=== PATIENT | male | born 1955 | race African-American/Black ===

== ENCOUNTER 2017-10-13 14:52 | Inpatient (IN) | payer MEDICAID ==
[~2017-10-13] VITALS: Ht 172.7 cm; Wt 59.0 kg
[~2017-10-13 14:52] MED LIST: ADVAIR; ALBUTEROL; ALBUTEROL INHALER INH; AMLO10TA4 PO; FLEXERIL; FLOMAX PO; FLUT1DIS3 IH; GABAPENTIN; GUAI10SY2 PO; HYDROCHLOROTHIAZIDE PO; IBUP-1008 PO; LEVO500T2 PO; P20 PO; PRO-AIR INH; TIOT18CA3
[2017-10-13] MEDS ORDERED: ALBUTEROL (0.083%) 2.5MG/3ML NEB HHN STA (18:59)
[2017-10-13] MEDS ORDERED: IPRATROPIUM BROMIDE (0.02%) 0.5MG/2.5ML NEB HHN STA (18:59)
[2017-10-13] MEDS ORDERED: SODIUM CHLORIDE 0.9% 1,000 ML IV ONE (19:15)
[2017-10-13] MEDS ORDERED: METHYLPREDNISOLONE SOD SUCC 125 MG/2 ML VIAL IV ONE (19:15)
[2017-10-13 19:57] LABS: BASOPHILS % 0.3 % (0.0-2.0); HEMATOCRIT. 40.8 % (42.0-52.0); HEMOGLOBIN. 13.7 g/dL (14.0-18.0); LYMPHOCYTES % 14.9 % (20.0-50.0); MEAN CORPUSCULAR HEMOGLOBIN 30.4 pg (28.0-32.0); MEAN CORPUSCULAR VOLUME 90.3 fL (80.0-94.0); MEAN PLATELET VOLUME 8.2 fl (7.4-10.4); MONOCYTES % 14.7 % (2.0-8.0); NEUTROPHILS % 70.1 % (40.0-76.0); PLATELET 217 x1000/uL (130-400); RED BLOOD CELL COUNT 4.51 mill/uL (4.7-6.1); RED CELL DISTRIBUTION WIDTH 15.2 % (11.6-14.6)
[2017-10-13 20:03] LABS: D-DIMER 2.14 mg/L FEU (<0.50); INR 1.1; PROTHROMBIN TIME 11.7 sec (9.4-11.6)
[2017-10-13 20:11] LABS: CARBON DIOXIDE 30 mEq/L (21-32); CHLORIDE 102 mEq/L (98-107)
[2017-10-13 20:14] LABS: TROPONIN I < 0.02 ng/mL (0.00-0.04)
[2017-10-13] MEDS ORDERED: CEFTRIAXONE 1 G PREMIX 50 ML IV ONE (22:00)
[2017-10-13] MEDS ORDERED: AZITHROMYCIN 500 MG in DEXT 5% WATER 250 ML IV ONE (22:00)
[2017-10-13 22:12] LABS: *AMPHETAMINES SCREEN URINE NEGATIVE (NEGATIVE); *BARBITURATES SCREEN URINE NEGATIVE (NEGATIVE); *BENZODIAZEPINES SCREEN URINE PRESUMTIVE POSITIVE (NEGATIVE); *COCAINE SCREEN URINE NEGATIVE (NEGATIVE); CANNABINOID URINE SCREEN NEGATIVE (NEGATIVE); METHADONE URINE SCREEN NEGATIVE (NEGATIVE); OPIATES URINE SCREEN PRESUMTIVE POSITIVE (NEGATIVE); PHENCYCLIDINE URINE SCREEN NEGATIVE (NEGATIVE)
[2017-10-13] MEDS ORDERED: METHYLPREDNISOLONE SOD SUCC 40 MG/ML VIAL IV SCH (22:30)
[2017-10-13] MEDS: AZITHROMYCIN 500 MG in DEXT 5% WATER 250 ML IV SCH (22:30)
[2017-10-13] MEDS ORDERED: ONDANSETRON HCL 4MG/2ML VIAL IV PRN (22:30)
[2017-10-13] MEDS ORDERED: ACETAMINOPHEN 325MG TABLET PO PRN (22:30)
[2017-10-13] MEDS ORDERED: DOCUSATE SODIUM 100MG CAPSULE PO PRN (22:30)
[2017-10-13] MEDS ORDERED: ENOXAPARIN 40MG/0.4ML SYR SUBCUT SCH (22:30)
[2017-10-13] MEDS ORDERED: CLONIDINE 0.1MG TABLET PO PRN (22:30)
[2017-10-13] MEDS ORDERED: CEFTRIAXONE 1 G PREMIX 50 ML IV SCH (22:30)
[2017-10-13] MEDS ORDERED: MAGNESIUM/ALUMINUM HYDROXIDE/SIMETHICONE 30ML UDC PO PRN (22:30)
[2017-10-13] MEDS ORDERED: BUDESONIDE 0.5MG/2ML NEB HHN SCH (22:30)
[2017-10-13] MEDS ORDERED: IOHEXOL-350 100 ML BOTTLE ONE (22:30)
[2017-10-13 23:43] LABS: CHLORIDE 101 mEq/L (98-107)
[2017-10-13 23:49] LABS: CARBON DIOXIDE 30 mEq/L (21-32)
[2017-10-14 06:49] LABS: BASOPHILS % 0.3 % (0.0-2.0); HEMATOCRIT. 39.6 % (42.0-52.0); LYMPHOCYTES % 12.8 % (20.0-50.0); MEAN CORPUSCULAR HEMOGLOBIN 29.7 pg (28.0-32.0); MEAN PLATELET VOLUME 7.8 fl (7.4-10.4); MONOCYTES % 14.6 % (2.0-8.0); NEUTROPHILS % 72.3 % (40.0-76.0); PLATELET 208 x1000/uL (130-400); RED CELL DISTRIBUTION WIDTH 15.1 % (11.6-14.6)
[2017-10-14 07:08] LABS: CREATINE KINASE 65 IU/L (39-308); HDL CHOLESTEROL 72 mg/dL (40-59); LDL CHOLESTEROL 62 mg/dL (5-100); TROPONIN I < 0.02 ng/mL (0.00-0.04)
[2017-10-14 07:12] LABS: CREATINE KINASE MB FRACTION 2.9 ng/mL (0.5-3.6)
[2017-10-14] MEDS: AZITHROMYCIN 500 MG in DEXT 5% WATER 250 ML IV SCH ×3 (07:23→07:25)
[2017-10-14 08:00] VITALS: BP 136/90
[2017-10-14 12:00] VITALS: BP 144/90
[2017-10-14] MEDS: ENOXAPARIN 40MG/0.4ML SYR SUBCUT SCH (12:43)
[2017-10-14] MEDS: METHYLPREDNISOLONE SOD SUCC 40 MG/ML VIAL IV SCH ×3 (12:43→23:14)
[2017-10-14 13:53] VITALS: BP 144/90
[2017-10-14 16:00] VITALS: BP 146/91
[2017-10-14 16:40] LABS: CREATINE KINASE 56 IU/L (39-308); CREATINE KINASE MB FRACTION 2.5 ng/mL (0.5-3.6); TROPONIN I < 0.02 ng/mL (0.00-0.04)
[2017-10-14] MEDS: IPRATROPIUM/ALBUTEROL 0.5-3(2.5)MG/3ML NEB INH PRN (17:00)
[2017-10-14 20:00] VITALS: BP 121/77
[2017-10-14] MEDS ORDERED: CEFTRIAXONE 1 G PREMIX 50 ML IV SCH (21:00)
[2017-10-14] MEDS ORDERED: AZITHROMYCIN 500 MG in DEXT 5% WATER 250 ML IV SCH (22:00)
[2017-10-15] VITALS: BP 124/81
[2017-10-15] MEDS: BUDESONIDE 0.5MG/2ML NEB HHN SCH ×2 (01:06→11:42)
[2017-10-15] MEDS: IPRATROPIUM/ALBUTEROL 0.5-3(2.5)MG/3ML NEB INH PRN (01:06)
[2017-10-15 04:00] VITALS: BP 137/81
[2017-10-15 07:49] LABS: BASOPHILS % 0.2 % (0.0-2.0); HEMATOCRIT. 38.4 % (42.0-52.0); HEMOGLOBIN. 12.9 g/dL (14.0-18.0); LYMPHOCYTES % 10.9 % (20.0-50.0); MEAN CORPUSCULAR HEMOGLOBIN 30.4 pg (28.0-32.0); MEAN CORPUSCULAR VOLUME 90.5 fL (80.0-94.0); MEAN PLATELET VOLUME 8.5 fl (7.4-10.4); NEUTROPHILS % 82.9 % (40.0-76.0); PLATELET 200 x1000/uL (130-400); RED BLOOD CELL COUNT 4.24 mill/uL (4.7-6.1); RED CELL DISTRIBUTION WIDTH 15.2 % (11.6-14.6)
[2017-10-15 08:39] VITALS: BP 127/72
[2017-10-15] MEDS: METHYLPREDNISOLONE SOD SUCC 40 MG/ML VIAL IV SCH ×2 (08:45→15:25)
[2017-10-15] MEDS: ENOXAPARIN 40MG/0.4ML SYR SUBCUT SCH (08:45)
[2017-10-15 08:49] LABS: CHLORIDE 102 mEq/L (98-107)
[2017-10-15 09:24] LABS: CARBON DIOXIDE 25 mEq/L (21-32)
[2017-10-15 11:45] VITALS: BP 130/75
[2017-10-15 13:37] VITALS: BP 130/75
[2017-10-15] MEDS ORDERED: ZOLPIDEM TARTRATE 5MG TABLET PO SCH (21:00)
== END 2017-10-15 17:23 | disposition home or self-care (01) | DRG 140 ==
LOC: ER 15:06 → 5WST 21:51 → EDBEDREQ 22:12 → ENRESERV 10-14 07:23
PROVIDERS: ADMIT Internal Medicine; ATTEND Internal Medicine
DX: J44.0 Chronic obstructive pulmonary disease with (acute) lower respiratory infection (principal); J18.9 Pneumonia, unspecified organism; Z99.81 Dependence on supplemental oxygen; E44.1 Mild protein-calorie malnutrition; D64.9 Anemia, unspecified; I10 Essential (primary) hypertension; J44.1 Chronic obstructive pulmonary disease with (acute) exacerbation; Z72.0 Tobacco use; Z79.899 Other long term (current) drug therapy; Z68.1 Body mass index [BMI] 19.9 or less, adult
CPT/HCPCS: 36415; 71045; 71275; 80048; 80053; 80061; 80305; 82550; 82553; 83735; 83880; 84443; 84484; 85025; 85379; 85610; 87040; 93005; 93306; 93970; 94640; 94664; 96365; 96375; 99285; J0456; J0696; J1650; J2920; J2930; J7030; J7050; J7060; J7611; J7620; J7626; Q9967

== ENCOUNTER 2017-10-19 12:27 | Emergency (ER) | payer MEDICAID ==
[~2017-10-19] VITALS: Ht 175.3 cm; Wt 85.0 kg
[~2017-10-19 12:27] MED LIST changes: +EPINEPHRINE 0.1MG/ML (1:10,000) 10ML SYR ONE; +MAGNESIUM SULFATE 4G IN WATER 100ML PREMIX IV ONE
[2017-10-19 12:28] VITALS: BP 0/0
== END 2017-10-19 12:30 | disposition expired ==
LOC: ER 12:27
DX: I46.9 Cardiac arrest, cause unspecified (principal); I10 Essential (primary) hypertension; J44.9 Chronic obstructive pulmonary disease, unspecified
CPT/HCPCS: 99285; J0171; J3475